=== PATIENT | female | born 1960 | race African-American/Black ===

== ENCOUNTER 2017-03-16 08:50 | Day surgery (SDC) | payer OTHER ==
[2017-03-15 17:10] VITALS: BMI 35.6
[2017-03-16 09:33] VITALS: TEMP 98.2
[2017-03-16] MEDS ORDERED: LIDOCAINE HCL 1%, 10 MG/ML (20ML VIAL) ONE (11:34)
[2017-03-16] MEDS ORDERED: BETAMET ACET/BETAMET NA PH 30 MG/5 ML VIAL ONE (11:35)
[2017-03-16] MEDS ORDERED: BUPIVACAINE HCL/PF 0.25% (2.5MG/ML) 10 ML VIAL ONE (11:35)
[2017-03-16] MEDS ORDERED: PROPOFOL 20 ML ONE (11:47)
[2017-03-16] MEDS ORDERED: LIDOCAINE HCL/PF 2% SDV 5ML VIAL ONE (11:47)
[2017-03-16] MEDS ORDERED: BUPIVACAINE HCL/PF 0.25% (2.5MG/ML) 10 ML VIAL IJ ONE (12:03)
[2017-03-16] MEDS ORDERED: LIDOCAINE HCL 1%, 10 MG/ML (20ML VIAL) IJ ONE (12:03)
[2017-03-16] MEDS ORDERED: IOHEXOL 180 MG/1 ML ML IJ ONE (12:05)
[2017-03-16] MEDS ORDERED: POVIDONE-IODINE OINTMENT 10% - 28.4 GM TUBE TP ONE (12:09)
[2017-03-16] MEDS ORDERED: BETAMET ACET/BETAMET NA PH 30 MG/5 ML VIAL IM ONE (12:09)
[2017-03-16 14:02] VITALS: PULSE 80
[2017-03-16 14:06] VITALS: BP 164/80
--- NOTE | 2017-03-25 13:55 | OP ---
DATE OF OPERATION: 03/16/2017 PREOPERATIVE DIAGNOSES: Low back pain. Lumbar radiculopathy. POSTOPERATIVE DIAGNOSES: Low back pain. Lumbar radiculopathy. PROCEDURE: Lumbar epidural steroid injection intralaminar, left side, L5-S1 level. ANESTHESIA: Local and MAC. ANESTHESIOLOGIST: Sravani Moore CRNA PROCEDURE: I discussed with her about risks, benefits and alternative treatment not only limited to infection, fever, headache, numbness, tingling, weakness, injury to blood vessels, nerves and muscles. The patient was placed in prone position with head, abdomen and legs supported with pillows. The lumbosacral area was prepped and draped with Betadine x3 and alcohol x3. Under fluoroscopy, the left L5-S1 area was identified. At this level, 3 mL of 1% lidocaine was infiltrated in the skin and subcutaneous tissue. A 20-gauge, 3-1/2-inch Tuohy needle was used to approach the epidural space via loss of resistance technique under intermittent fluoroscopy in both AP and oblique views. After negative aspiration, 2 mL of Omnipaque was injected to see the flow of dye into the epidural space both cranially and caudally. There was no positive uptake for CSF. Next, 2.5 mL of Celestone mixed with 2.5 mL of 0.25% Marcaine total volume 40 mL was injected into the epidural space after negative aspiration. While needle was withdrawn, 1 mL of 1% lidocaine was infiltrated. Bleeding was checked. Betadine was wiped off. Sterile bandage was placed. The patient tolerated the procedure well. There was no immediate complication. Patient was transferred to recovery room, observed for some time, and discharged as per ASU criteria. The patient was told to apply ice. If any problems, call me or report to ER. A followup appointment was given. JUAN RANGEL M.D. SUSAN/[id number]
== END 2017-03-16 13:40 | disposition home or self-care (01) ==
LOC: JASU-SURG 08:50
PROVIDERS: ATTEND Physical Medicine & Rehabilitation
PROC: 3E0R3CZ (ICD-10-PCS; 2017-03-16)
PROC: B01BYZZ Fluoroscopy of Spinal Cord using Other Contrast (ICD-10-PCS; 2017-03-16)
PROC: 3E0R33Z Introduction of Anti-inflammatory into Spinal Canal, Percutaneous Approach (ICD-10-PCS; principal; 2017-03-16 11:00)
DX: M54.16 Radiculopathy, lumbar region (principal); M54.5 Low back pain
CPT/HCPCS: 76000-TC

== ENCOUNTER 2017-08-03 09:16 | Day surgery (SDC) | payer OTHER ==
[2017-08-02 14:20] VITALS: BMI 34.2
[~2017-08-03 09:16] MED LIST: BETAMET ACET/BETAMET NA PH 30 MG/5 ML VIAL IJ ONE; BUPIVACAINE HCL/PF 0.25% (2.5MG/ML) 10 ML VIAL IJ ONE; IOHEXOL 180 MG/1 ML ML IJ ONE; LIDOCAINE HCL 1%, 10 MG/ML (50 mL VIAL) IJ ONE
[2017-08-03 09:41] VITALS: TEMP 97.6
[2017-08-03] MEDS ORDERED: LIDOCAINE HCL 1%, 10 MG/ML (20ML VIAL) ONE (11:00)
[2017-08-03] MEDS ORDERED: BUPIVACAINE HCL/PF 0.25% (2.5MG/ML) 10 ML VIAL ONE (11:00)
[2017-08-03] MEDS ORDERED: BETAMET ACET/BETAMET NA PH 30 MG/5 ML VIAL ONE (11:00)
[2017-08-03] MEDS ORDERED: MIDAZOLAM HCL 2 MG/2 ML SINGLE DOSE VIAL ONE (11:46)
[2017-08-03] MEDS ORDERED: LIDOCAINE HCL 1%, 10 MG/ML (50 mL VIAL) IJ ONE (11:53)
[2017-08-03] MEDS ORDERED: BUPIVACAINE HCL/PF 0.25% (2.5MG/ML) 10 ML VIAL IJ ONE (11:53)
[2017-08-03] MEDS ORDERED: IOHEXOL 180 MG/1 ML ML IJ ONE (11:54)
[2017-08-03] MEDS ORDERED: BETAMET ACET/BETAMET NA PH 30 MG/5 ML VIAL IJ ONE (11:55)
[2017-08-03] MEDS ORDERED: PROPOFOL 20 ML ONE (12:00)
[2017-08-03 13:50] VITALS: BP 122/70; PULSE 76
--- NOTE | 2017-08-03 14:29 | PROC ---
Procedure Note Procedure: Date of service: 08/03/2017 Preoperative Diagnosis: Low back pain and lumbar radiculopathy on Left Postoperative Diagnosis: Same Procedure Performed: Lumbar Epidural Steroid Injection (LESI) on Left L5-S1 with dye under Fluoroscopy Anesthesia: Local / MAC Anesthesiologist: Dr. Leo Procedure: I discussed with the patient in detail about the risks, benefits, and alternatives to treatment not only limited to infection, headache, numbness , weakness, and injury to nerves, blood vessels and muscles. The patient understood, agreed and signed the written consent. The patient was placed in the prone position with the head, abdomen and legs supported with the pillows. The lumbosacral area was prepped and draped with Betadine times three in a sterile fashion. Lumbar vertebrae were identified under the C-arm. At L5-S1 level on the Left side, 3 ml of 1 % Lidocaine was infiltrated into the skin and subcutaneous tissue. A 3 inch, #20 gauge Tuohy needle was advanced to the epidural space with loss of resistance technique under fluoroscopic guidance. Aspiration was negative for cerebrospinal fluid and blood. 2ml of Omnipaque ( radio-opaque dye) was injected to confirm the tip of the needle into epidural space and spread of dye. There was no CSF or vascular spread. The spread of dye was noted cranially and caudally on epidurogram. Aspiration was done again which was negative. A solution of 2.5 ml of Celestone, 2 ml of 0.25% Marcaine and a total of 4 ml was injected slowly. While Tuohy needle was withdrawn 2.0 ml of 1 % Lidocaine was infiltrated. Bleeding was checked. Betadine was wiped off. A sterile bandage was placed. The patient tolerated the procedure well. There were no immediate complications. The patient was transferred to the recovery room. The patient was observed for some time and discharged as per ASU criteria. The patient was told to apply ice at the injection site. Follow up appointment was given and also call my office at [phone]. If there is any problem, call my office or report to Emergency Room. Armand Munson M.D.
== END 2017-08-03 13:50 | disposition home or self-care (01) ==
LOC: JASU-SURG 09:16
PROVIDERS: ATTEND Physical Medicine & Rehabilitation
PROC: 3E0R33Z Introduction of Anti-inflammatory into Spinal Canal, Percutaneous Approach (ICD-10-PCS; 2017-08-03)
PROC: B01BYZZ Fluoroscopy of Spinal Cord using Other Contrast (ICD-10-PCS; 2017-08-03)
PROC: 3E0R3BZ Introduction of Anesthetic Agent into Spinal Canal, Percutaneous Approach (ICD-10-PCS; principal; 2017-08-03 11:00)
DX: M54.16 Radiculopathy, lumbar region (principal); M54.5 Low back pain
CPT/HCPCS: 76000-TC

== ENCOUNTER 2017-08-31 09:07 | Day surgery (SDC) | payer OTHER ==
[2017-08-30 11:19] VITALS: BMI 34.2
[2017-08-31 09:31] VITALS: TEMP 98.2
[2017-08-31] MEDS ORDERED: TRIAMCINOLONE ACET 40MG/1ML VIAL ONE (10:21)
[2017-08-31] MEDS ORDERED: TRIAMCINOLONE ACET 40MG/1ML VIAL IM ONE (10:26)
[2017-08-31] MEDS ORDERED: BUPIVACAINE HCL/PF 0.25% (2.5MG/ML) 10 ML VIAL IJ ONE (10:26)
[2017-08-31] MEDS ORDERED: LIDOCAINE HCL 1%, 10 MG/ML (20ML VIAL) PNB ONE (10:26)
[2017-08-31] MEDS ORDERED: IOHEXOL 180 MG/1 ML ML IJ ONE (10:26)
[2017-08-31 12:05] VITALS: BP 140/70; PULSE 70
== END 2017-08-31 12:05 | disposition home or self-care (01) ==
LOC: JASU-SURG 09:07
PROVIDERS: ATTEND Physical Medicine & Rehabilitation
PROC: 3E0U3BZ Introduction of Anesthetic Agent into Joints, Percutaneous Approach (ICD-10-PCS; 2017-08-31)
PROC: 3E0U33Z Introduction of Anti-inflammatory into Joints, Percutaneous Approach (ICD-10-PCS; principal; 2017-08-31 10:00)
DX: M53.3 Sacrococcygeal disorders, not elsewhere classified (principal)
CPT/HCPCS: 76000-TC

== ENCOUNTER 2020-11-24 08:30 | Inpatient (IN) | payer OTHER ==
[2020-11-24] MEDS ORDERED: DEXAMETHASONE SOD PHOSPHATE 10 MG/1 ML VIAL IVPUSH ONE (09:06)
[2020-11-24] MEDS ORDERED: SODIUM CHLORIDE 0.9% 500 ML INFUS.BAG IV ONE ×2 (09:06→10:38)
[2020-11-24] MEDS ORDERED: ACETAMINOPHEN 500 MG TABLET (FP) PO ONE (09:06)
[2020-11-24] MEDS ORDERED: DEXAMETHASONE SOD PHOSPHATE 10 MG/1 ML VIAL ONE (09:29)
[2020-11-24] MEDS ORDERED: ACETAMINOPHEN 325 MG TABLET (FP) ONE (09:29)
[2020-11-24 09:55] LABS: BASO % 0.4 % (0-2.0); HEMATOCRIT 32.6 % (32.4-45.2); HEMOGLOBIN 10.9 GM/dL (10.7-15.3); LYMPH % 16.4 % (8-40); MCH 28.4 pg (25.7-33.7); MCHC 33.5 g/dl (32.0-36.0); MEAN CELL VOLUME 84.8 fl (80-96); MEAN PLT VOLUME 8.7 fl (7.5-11.1); MONO % 7.1 % (3.8-10.2); NEUT % 76.1 % (42.8-82.8); PLATELET COUNT 215 K/MM3 (134-434); RBC 3.84 M/mm3 (3.60-5.2); RDW 13.7 % (11.6-15.6); WHITE BLOOD COUNT 4.1 K/mm3 (4.0-10.0)
[2020-11-24 10:31] LABS: CHLORIDE 97 mmol/L (98-107); SODIUM 134 mmol/L (136-145)
[2020-11-24 10:34] LABS: ALBUMIN 3.6 g/dl (3.4-5.0); BLOOD UREA NITROGEN 40.6 mg/dL (7-18); CALCIUM 8.7 mg/dL (8.5-10.1); CO2 29 mmol/L (21-32); GLUCOSE,RANDOM 109 mg/dL (74-106); MAGNESIUM 2.2 mg/dL (1.8-2.4)
[2020-11-24 10:37] LABS: SGOT/AST 46 U/L (15-37); SGPT/ALT 26 U/L (13-61)
[2020-11-24 10:38] LABS: LDH 504 U/L (84-246)
[2020-11-24 10:39] LABS: BILIRUBIN,TOTAL 0.5 mg/dL (0.2-1); TOT PROT 7.8 g/dl (6.4-8.2)
[2020-11-24 10:40] LABS: ALK PHOS 87 U/L (45-117)
[2020-11-24 11:24] LABS: ANION GAP 9 MMOL/L (8-16); POTASSIUM 3.7 mmol/L (3.5-5.1)
[2020-11-24] MEDS ORDERED: ACETAMINOPHEN 500 MG TABLET (FP) PO PRN (12:14)
[2020-11-24 13:26] LABS: EPI CELLS >36 /uL (0-25.1); HYALINE CASTS 2 /uL (0-3.1); URINE APPEARANCE CLOUDY; URINE BACTERIA 1120 /uL (0-1359); URINE BILIRUBIN NEGATIVE (NEGATIVE); URINE COLOR YELLOW; URINE GLUCOSE (UA) NEGATIVE (NEGATIVE); URINE KETONE NEGATIVE (NEGATIVE); URINE LEUK ESTERASE 1+ (NEGATIVE); URINE NITRITE NEGATIVE (NEGATIVE); URINE PROTEIN NEGATIVE (NEGATIVE); URINE RBC 44 /uL (0-23.9); URINE UROBILINOGEN 0.2 mg/dL (0.2-1.0); URINE WBC 26 /uL (0-25.8)
[2020-11-24] MEDS ORDERED: HEPARIN NA (PORCINE) 5,000 UNITS/ML 1ML VIAL ONE (14:34)
[2020-11-24] MEDS: HEPARIN NA (PORCINE) 5,000 UNITS/ML 1ML VIAL SQ SCH ×2 (14:38→21:41)
[2020-11-24] MEDS: INSULIN SLIDING SCALE (NOVOLOG) 1 VIAL SQ SCH (17:13)
[2020-11-24 19:52] VITALS: BMI 30.5
[2020-11-24] MEDS: ATORVASTATIN CA 20 MG TABLET (FP) PO SCH (21:41)
[2020-11-25] MEDS: HEPARIN NA (PORCINE) 5,000 UNITS/ML 1ML VIAL SQ SCH ×3 (06:00→22:24)
[2020-11-25] MEDS: INSULIN SLIDING SCALE (NOVOLOG) 1 VIAL SQ SCH ×4 (06:06→22:25)
[2020-11-25] MEDS: PANTOPRAZOLE 40 MG TABLET PO SCH (09:32)
[2020-11-25] MEDS: DEXAMETHASONE 4 MG TABLET (FP) PO SCH (09:32)
[2020-11-25] MEDS ORDERED: CEFTRIAXONE 1 GM in DEXTROSE 5%-WATER - 50 ML IVPB SCH (10:00)
[2020-11-25 11:25] LABS: BASO % 0.7 % (0-2.0); HEMATOCRIT 31.4 % (32.4-45.2); HEMOGLOBIN 10.6 GM/dL (10.7-15.3); LYMPH % 21.7 % (8-40); MCH 28.4 pg (25.7-33.7); MCHC 33.9 g/dl (32.0-36.0); MEAN PLT VOLUME 8.2 fl (7.5-11.1); MONO % 6.3 % (3.8-10.2); NEUT % 71.3 % (42.8-82.8); PLATELET COUNT 236 K/MM3 (134-434); RBC 3.74 M/mm3 (3.60-5.2); RDW 13.9 % (11.6-15.6); WHITE BLOOD COUNT 6.8 K/mm3 (4.0-10.0)
[2020-11-25] MEDS: SULFAMETHOXAZOLE/TRIMETHOPRIM 800MG/160MG D.S. TABLET PO SCH (11:35)
[2020-11-25 11:47] LABS: POTASSIUM 3.2 mmol/L (3.5-5.1)
[2020-11-25 11:49] LABS: ALBUMIN 3.4 g/dl (3.4-5.0); BLOOD UREA NITROGEN 22.8 mg/dL (7-18); MAGNESIUM 2.1 mg/dL (1.8-2.4)
[2020-11-25 11:52] LABS: CREATININE 1.1 mg/dL (0.55-1.3)
[2020-11-25 11:54] LABS: BILIRUBIN,TOTAL 0.4 mg/dL (0.2-1); TOT PROT 7.5 g/dl (6.4-8.2)
[2020-11-25] MEDS: POTASSIUM CHLORIDE TABS 20 MEQ TABLET.ER (FP) PO SCH ×2 (17:33→22:24)
[2020-11-25] MEDS ORDERED: INSULIN SLIDING SCALE (NOVOLOG) 1 VIAL SQ SCH (22:00)
[2020-11-25] MEDS: MONTELUKAST NA 10 MG TABLET PO SCH (22:25)
[2020-11-25] MEDS: ATORVASTATIN CA 20 MG TABLET (FP) PO SCH (22:25)
[2020-11-26] MEDS ORDERED: REMDESIVIR 200 MG in SODIUM CHLORIDE 210 ML IVPB ONE (01:55)
[2020-11-26] MEDS ORDERED: PT OWN MED DRAWER 7, Y5N ONE (03:18)
[2020-11-26] MEDS: HEPARIN NA (PORCINE) 5,000 UNITS/ML 1ML VIAL SQ SCH ×3 (05:54→21:57)
[2020-11-26] MEDS: INSULIN SLIDING SCALE (NOVOLOG) 1 VIAL SQ SCH ×4 (06:00→21:57)
[2020-11-26 06:57] LABS: BASO % 0.4 % (0-2.0); HEMATOCRIT 28.8 % (32.4-45.2); HEMOGLOBIN 9.7 GM/dL (10.7-15.3); LYMPH % 29.3 % (8-40); MCH 28.6 pg (25.7-33.7); MCHC 33.7 g/dl (32.0-36.0); MEAN PLT VOLUME 8.6 fl (7.5-11.1); MONO % 7.4 % (3.8-10.2); NEUT % 62.9 % (42.8-82.8); PLATELET COUNT 242 K/MM3 (134-434); RBC 3.39 M/mm3 (3.60-5.2); RDW 13.9 % (11.6-15.6); WHITE BLOOD COUNT 5.4 K/mm3 (4.0-10.0)
[2020-11-26 07:23] LABS: POTASSIUM 3.7 mmol/L (3.5-5.1)
[2020-11-26 07:30] LABS: ALBUMIN 2.9 g/dl (3.4-5.0); BLOOD UREA NITROGEN 18.8 mg/dL (7-18); CALCIUM 8.4 mg/dL (8.5-10.1); MAGNESIUM 1.9 mg/dL (1.8-2.4)
[2020-11-26 07:31] LABS: CREATININE 1.1 mg/dL (0.55-1.3)
[2020-11-26 07:33] LABS: BILIRUBIN,TOTAL 0.3 mg/dL (0.2-1); TOT PROT 6.9 g/dl (6.4-8.2)
[2020-11-26] MEDS: REMDESIVIR 100 MG in SODIUM CHLORIDE 230 ML IVPB SCH (09:45)
[2020-11-26] MEDS: SULFAMETHOXAZOLE/TRIMETHOPRIM 800MG/160MG D.S. TABLET PO SCH (09:46)
[2020-11-26] MEDS: PANTOPRAZOLE 40 MG TABLET PO SCH (09:46)
[2020-11-26] MEDS: DEXAMETHASONE 4 MG TABLET (FP) PO SCH (09:46)
[2020-11-26 18:07] LABS: MYCOPLASMA PNEUMONIAE,IG G AB 172 U/mL (0-99); MYCOPLASMA PNEUMONIAE,IGM AB <770 U/mL (0-769)
[2020-11-26] MEDS: MONTELUKAST NA 10 MG TABLET PO SCH (21:57)
[2020-11-26] MEDS: ATORVASTATIN CA 20 MG TABLET (FP) PO SCH (21:57)
[2020-11-27] MEDS: HEPARIN NA (PORCINE) 5,000 UNITS/ML 1ML VIAL SQ SCH ×3 (06:17→21:53)
[2020-11-27] MEDS: INSULIN SLIDING SCALE (NOVOLOG) 1 VIAL SQ SCH ×4 (06:18→21:53)
[2020-11-27 08:57] LABS: BASO % 0.9 % (0-2.0); HEMATOCRIT 31.7 % (32.4-45.2); HEMOGLOBIN 10.5 GM/dL (10.7-15.3); LYMPH % 37.8 % (8-40); MCHC 33.2 g/dl (32.0-36.0); MEAN CELL VOLUME 84.6 fl (80-96); MEAN PLT VOLUME 8.4 fl (7.5-11.1); MONO % 9.5 % (3.8-10.2); NEUT % 51.8 % (42.8-82.8); PLATELET COUNT 334 K/MM3 (134-434); RBC 3.75 M/mm3 (3.60-5.2); WHITE BLOOD COUNT 5.2 K/mm3 (4.0-10.0)
[2020-11-27] MEDS: DEXAMETHASONE 4 MG TABLET (FP) PO SCH (09:12)
[2020-11-27] MEDS: SULFAMETHOXAZOLE/TRIMETHOPRIM 800MG/160MG D.S. TABLET PO SCH (09:12)
[2020-11-27] MEDS: PANTOPRAZOLE 40 MG TABLET PO SCH (09:12)
[2020-11-27 09:27] LABS: POTASSIUM 3.8 mmol/L (3.5-5.1)
[2020-11-27 10:01] LABS: BILIRUBIN,TOTAL 0.5 mg/dL (0.2-1)
[2020-11-27 10:09] LABS: BLOOD UREA NITROGEN 25.7 mg/dL (7-18)
[2020-11-27 10:13] LABS: ALBUMIN 3.3 g/dl (3.4-5.0); CALCIUM 8.7 mg/dL (8.5-10.1)
[2020-11-27 10:15] LABS: MAGNESIUM 1.8 mg/dL (1.8-2.4)
[2020-11-27 10:17] LABS: CREATININE 1.1 mg/dL (0.55-1.3)
[2020-11-27] MEDS: REMDESIVIR 100 MG in SODIUM CHLORIDE 230 ML IVPB SCH (10:17)
[2020-11-27 10:20] LABS: TOT PROT 7.4 g/dl (6.4-8.2)
[2020-11-27] MEDS: MONTELUKAST NA 10 MG TABLET PO SCH (21:53)
[2020-11-27] MEDS: ATORVASTATIN CA 20 MG TABLET (FP) PO SCH (21:53)
[2020-11-28] MEDS: HEPARIN NA (PORCINE) 5,000 UNITS/ML 1ML VIAL SQ SCH ×3 (05:31→21:44)
[2020-11-28] MEDS: INSULIN SLIDING SCALE (NOVOLOG) 1 VIAL SQ SCH ×4 (06:36→21:45)
[2020-11-28 06:53] LABS: BASO % 0.8 % (0-2.0); HEMATOCRIT 29.1 % (32.4-45.2); HEMOGLOBIN 9.6 GM/dL (10.7-15.3); LYMPH % 36.9 % (8-40); MCH 28.1 pg (25.7-33.7); MCHC 33.1 g/dl (32.0-36.0); MEAN CELL VOLUME 84.9 fl (80-96); MEAN PLT VOLUME 8.6 fl (7.5-11.1); MONO % 12.1 % (3.8-10.2); NEUT % 50.2 % (42.8-82.8); PLATELET COUNT 356 K/MM3 (134-434); RBC 3.43 M/mm3 (3.60-5.2); WHITE BLOOD COUNT 6.4 K/mm3 (4.0-10.0)
[2020-11-28 07:21] LABS: POTASSIUM 3.9 mmol/L (3.5-5.1)
[2020-11-28 07:23] LABS: CALCIUM 8.3 mg/dL (8.5-10.1)
[2020-11-28 07:24] LABS: ALBUMIN 2.9 g/dl (3.4-5.0); BLOOD UREA NITROGEN 23.2 mg/dL (7-18); MAGNESIUM 1.9 mg/dL (1.8-2.4)
[2020-11-28 07:27] LABS: CREATININE 0.9 mg/dL (0.55-1.3)
[2020-11-28 07:28] LABS: BILIRUBIN,TOTAL 0.2 mg/dL (0.2-1); TOT PROT 6.5 g/dl (6.4-8.2)
[2020-11-28] MEDS: DEXAMETHASONE 4 MG TABLET (FP) PO SCH (09:50)
[2020-11-28] MEDS: PANTOPRAZOLE 40 MG TABLET PO SCH (09:51)
[2020-11-28] MEDS: MULTIVITAMINS THER W-MINERALS COMBO TABLET (FP) PO SCH (09:51)
[2020-11-28] MEDS: REMDESIVIR 100 MG in SODIUM CHLORIDE 230 ML IVPB SCH (10:26)
[2020-11-28] MEDS: ATORVASTATIN CA 20 MG TABLET (FP) PO SCH (21:44)
[2020-11-28] MEDS: MONTELUKAST NA 10 MG TABLET PO SCH (21:44)
[2020-11-29] MEDS: HEPARIN NA (PORCINE) 5,000 UNITS/ML 1ML VIAL SQ SCH ×2 (05:57→13:20)
[2020-11-29] MEDS: INSULIN SLIDING SCALE (NOVOLOG) 1 VIAL SQ SCH ×2 (06:00→10:57)
[2020-11-29] MEDS: MULTIVITAMINS THER W-MINERALS COMBO TABLET (FP) PO SCH (09:47)
[2020-11-29] MEDS: DEXAMETHASONE 4 MG TABLET (FP) PO SCH (09:47)
[2020-11-29] MEDS: PANTOPRAZOLE 40 MG TABLET PO SCH (09:48)
[2020-11-29] MEDS: REMDESIVIR 100 MG in SODIUM CHLORIDE 230 ML IVPB SCH (11:40)
[2020-11-29 11:53] VITALS: BP 122/72; PULSE 87; TEMP 98.1
== END 2020-11-29 15:47 | disposition home or self-care (01) | DRG 720 ==
LOC: JER 08:30 → JERBED 09:40 → J4S 18:39
PROVIDERS: ADMIT Student in an Organized Health Care Education/Training Program; ATTEND Nurse Practitioner Family
PROC: XW033E5 Introduction of Remdesivir Anti-infective into Peripheral Vein, Percutaneous Approach, New Technology Group 5 (ICD-10-PCS; 2020-11-26)
PROC: XW13325 Transfusion of Convalescent Plasma (Nonautologous) into Peripheral Vein, Percutaneous Approach, New Technology Group 5 (ICD-10-PCS; principal; 2020-11-27)
DX: A41.89 Other specified sepsis (principal); U07.1 COVID-19; A08.39 Other viral enteritis; J96.01 Acute respiratory failure with hypoxia; N17.9 Acute kidney failure, unspecified; R50.9 Fever, unspecified; I95.9 Hypotension, unspecified; K21.9 Gastro-esophageal reflux disease without esophagitis; I10 Essential (primary) hypertension; E11.9 Type 2 diabetes mellitus without complications; E78.5 Hyperlipidemia, unspecified; E66.9 Obesity, unspecified; Z68.30 Body mass index [BMI] 30.0-30.9, adult; M54.30 Sciatica, unspecified side; E87.1 Hypo-osmolality and hyponatremia; R94.5 Abnormal results of liver function studies; J12.82 Pneumonia due to coronavirus disease 2019
CPT/HCPCS: 36415; 36430; 71045-TC-FY; 80053; 81003; 82043; 82550; 82553; 82570; 82728; 82962; 83605; 83615; 83735; 84484; 85025; 85379; 86140; 86738; 86769; 86850; 86900; 86901; 87086; 87186; 87899; 93005; 93010; 94761; 99285-25; C9399; C9803; J1100; J1644; P9017; U0003

== ENCOUNTER 2022-09-14 04:10 | Day surgery (SDC) | payer OTHER ==
[2022-09-10 13:57] VITALS: BMI 32.6
[2022-09-14] MEDS ORDERED: LIDOCAINE HCL/PF 1% SDV 5ML VIAL ONE (07:22)
[2022-09-14] MEDS ORDERED: LIDOCAINE HCL/PF 2% SDV 5ML VIAL ONE (07:22)
[2022-09-14 08:05] VITALS: PULSE 65; RESP 18
[2022-09-14] MEDS ORDERED: BETAMET ACET/BETAMET NA PH 30 MG/5 ML VIAL ONE (08:24)
[2022-09-14] MEDS ORDERED: MIDAZOLAM HCL 2 MG/2 ML SINGLE DOSE VIAL ONE (11:00)
[2022-09-14] MEDS ORDERED: FENTANYL CITRATE/PF 50 MCG/ML VIAL ONE (11:00)
[2022-09-14] MEDS ORDERED: DEXAMETHASONE SOD PHOSPHATE 10 MG/1 ML VIAL IVPUSH ONE (11:07)
[2022-09-14] MEDS ORDERED: BUPIVACAINE HCL/PF 0.5% (5MG/ML) 10 ML VIAL IJ ONE ×3 (11:07→11:39)
[2022-09-14] MEDS ORDERED: BUPIVACAINE HCL/PF 0.25% (2.5MG/ML) 10 ML VIAL IJ ONE (11:07)
[2022-09-14] MEDS ORDERED: PROPOFOL 20 ML ONE (11:39)
[2022-09-14 11:59] VITALS: BP 112/61
[2022-09-14 12:27] VITALS: TEMP 98.4
== END 2022-09-14 12:24 | disposition home or self-care (01) ==
LOC: JASU-SURG 04:10
PROVIDERS: ATTEND Physical Medicine & Rehabilitation
PROC: BR16YZZ Fluoroscopy of Lumbar Facet Joint(s) using Other Contrast (ICD-10-PCS; 2022-09-14)
PROC: 3E0T3TZ Introduction of Destructive Agent into Peripheral Nerves and Plexi, Percutaneous Approach (ICD-10-PCS; principal; 2022-09-14 09:00)
DX: M47.817 Spondylosis without myelopathy or radiculopathy, lumbosacral region (principal)
CPT/HCPCS: 76000-TC-FY; 82962; J1100

== ENCOUNTER 2023-12-06 09:32 | Day surgery (SDC) | payer OTHER ==
[2023-12-06 13:56] VITALS: BMI 32.5
[2023-12-06] MEDS ORDERED: MIDAZOLAM HCL 2 MG/2 ML SINGLE DOSE VIAL ONE ×2 (15:06→15:12)
[2023-12-06] MEDS: IOHEXOL 180 MG/1 ML ML IJ ONE (15:15)
[2023-12-06] MEDS: LIDOCAINE HCL 1%, 10 MG/ML (20ML VIAL) INF ONE (15:16)
[2023-12-06] MEDS: BUPIVACAINE HCL/PF 0.5% (5 MG/ML) 30 ML VIAL IJ ONE (15:16)
[2023-12-06 16:44] VITALS: PULSE 65; RESP 18
[2023-12-06 16:52] VITALS: BP 110/53; TEMP 97.8
== END 2023-12-06 16:15 | disposition home or self-care (01) ==
LOC: JASU-SURG 09:32
PROVIDERS: ATTEND Physical Medicine & Rehabilitation
PROC: BR16YZZ Fluoroscopy of Lumbar Facet Joint(s) using Other Contrast (ICD-10-PCS; 2023-12-06)
PROC: 3E0T3BZ Introduction of Anesthetic Agent into Peripheral Nerves and Plexi, Percutaneous Approach (ICD-10-PCS; principal; 2023-12-06 15:30)
DX: M47.817 Spondylosis without myelopathy or radiculopathy, lumbosacral region (principal)
CPT/HCPCS: 76000-TC-FY; 82962

== ENCOUNTER 2024-03-13 04:09 | Day surgery (SDC) | payer OTHER ==
[2024-02-10 10:16] VITALS: BMI 30.3
[2024-03-13 07:55] VITALS: RESP 16
[2024-03-13] MEDS ORDERED: LIDOCAINE HCL/PF 2% SDV 5ML VIAL ONE (09:27)
[2024-03-13] MEDS ORDERED: BUPIVACAINE HCL/PF 0.25% (2.5MG/ML) 10 ML VIAL ONE (09:27)
[2024-03-13] MEDS ORDERED: LIDOCAINE HCL/PF 1% SDV 5ML VIAL ONE (09:28)
[2024-03-13] MEDS ORDERED: BUPIVACAINE HCL/PF 0.5% (5MG/ML) 10 ML VIAL ONE (09:28)
[2024-03-13] MEDS ORDERED: BUPIVACAINE HCL/PF 0.75% 10 ML VIAL ONE (09:28)
[2024-03-13] MEDS ORDERED: FENTANYL CITRATE/PF 50 MCG/ML VIAL ONE (11:38)
[2024-03-13] MEDS ORDERED: MIDAZOLAM HCL 2 MG/2 ML SINGLE DOSE VIAL ONE (11:38)
[2024-03-13] MEDS: LIDOCAINE HCL 1% PRESERVATIVE FREE - 30ML VIAL IJ ONE (11:39)
[2024-03-13] MEDS: BUPIVACAINE HCL/PF 0.5% (5 MG/ML) 30 ML VIAL IJ ONE (11:47)
[2024-03-13] MEDS: DEXAMETHASONE SOD PHOSPHATE 10 MG/1 ML VIAL IM ONE (11:48)
[2024-03-13] MEDS ORDERED: ONDANSETRON 4 MG/2 ML VIAL ONE (11:58)
[2024-03-13 12:29] VITALS: BP 123/66; PULSE 55; TEMP 97.3
== END 2024-03-13 13:35 | disposition home or self-care (01) ==
LOC: JASU-SURG 04:09
PROVIDERS: ATTEND Physical Medicine & Rehabilitation
PROC: 015B3ZZ Destruction of Lumbar Nerve, Percutaneous Approach (ICD-10-PCS; principal; 2024-03-13 10:30)
DX: M47.816 Spondylosis without myelopathy or radiculopathy, lumbar region (principal); M54.50 Low back pain, unspecified
CPT/HCPCS: 76000-TC-FY; 82962; J1100

== ENCOUNTER 2024-03-15 10:11 | Emergency (ER) | payer OTHER ==
[2024-03-15 10:20] VITALS: BP 124/76; PULSE 80; RESP 18; TEMP 97.1; BMI 30.5
== END 2024-03-15 11:47 | disposition home or self-care (01) ==
LOC: JERFT 10:11
DX: S20.212A Contusion of left front wall of thorax, initial encounter (principal); S80.911A Unspecified superficial injury of right knee, initial encounter; W01.198A Fall on same level from slipping, tripping and stumbling with subsequent striking against other object, initial encounter; Y93.01 Activity, walking, marching and hiking
CPT/HCPCS: 71250-TC; 73562-TC-RT-FY; 93005; 93010; 99285-25